=== PATIENT | male | born 1945 | race Caucasian/White ===

== ENCOUNTER 2020-10-20 13:10 | Outpatient (CLI) | payer MEDICARE, SELFPAY ==
--- NOTE | 2020-10-20 13:29 | XR_ITS ---
WS: [id number] Exam: XR knee RT 1-2V 50964 Date/Time of Exam: 10/20/2020 1:43 PM Reason For Exam: PAIN IN R KNEE No fracture or dislocation noted. The joint compartments are relatively well maintained. Moderate-siz ed effusion in the suprapatellar bursa. XR/XR knee RT 1-2V 25235 IMPRESSION: 1. Moderate joint effusion. No bony injury noted.
== END 2020-10-20 13:11 | disposition home or self-care (01) ==
PROVIDERS: Visit Provider Nurse Practitioner
DX: M25.561 Pain in right knee (principal); M25.461 Effusion, right knee
CPT/HCPCS: 73560

== ENCOUNTER → 2023-11-11 13:03 | Outpatient (BNVA) | payer MEDICARE, SELFPAY | PROVIDERS: Visit Provider Nurse Practitioner | DX: R53.83 Other fatigue (principal); B34.9 Viral infection, unspecified | CPT/HCPCS: 87426 ==